=== PATIENT | female | born 1975 | race Caucasian/White ===

== ENCOUNTER → 2021-12-24 14:20 | Outpatient (CLI) | payer BC, SELFPAY ==
[2021-12-24 16:18] LABS: Alanine Aminotransferase 20 U/L (12-78); Albumin Level 4.1 g/dl (3.5-5.0); Alkaline Phosphatase 80 U/L (38-126); Aspartate Amino Transferase 31 U/L (14-36); Bilirubin,Direct 0.1 mg/dl (0.0-0.4); Chol/HDL Ratio 2.7 (1-3.5); Cholesterol 179 mg/dl (140-200); HDL Cholesterol 66 mg/dl (40-60); Total Protein,Serum 6.6 g/dl (6.3-8.2); Triglycerides 119 mg/dl (30-150); VLDL Cholesterol 24 mg/dL (0-40)
[2021-12-24 16:22] LABS: Bilirubin,Total 0.1 mg/dl (0.2-1.3)
[2021-12-26 13:50] LABS: Direct LDL Cholesterol 91 mg/dL (100-129)
== END ==
PROVIDERS: Visit Provider Nurse Practitioner
DX: R00.2 Palpitations (principal)
CPT/HCPCS: 36415; 80061; 80076

== ENCOUNTER 2023-12-01 11:26 | Outpatient (CLI) | payer BC, SELFPAY ==
[2023-12-01 11:55] LABS: Basophils # 0.1 K/mm3 (0-0.2); Basophils % 1.1 % (0.1-2.0); Eosinophils # 0.1 K/mm3 (0.0-0.4); Eosinophils % 1.1 % (0.1-12.0); Lymphocytes # 1.8 K/mm3 (0.7-4.5); Lymphocytes % 40.3 % (10-50); Mean Corpuscular HGB Conc 32.5 g/dL (31.8-35.4); Monocytes # 0.3 K/mm3 (0.1-1.0); Monocytes % 6.9 % (1.7-9.3); Neutrophils # 2.2 K/mm3 (1.8-7.8); Neutrophils % 50.5 % (37.0-80.0); Platelet Count 242 K/mm3 (142-424); Red Blood Count 4.49 M/mm3 (4.20-5.40); Red Cell Distribution Width 14.5 % (11.5-17.5); White Blood Count 4.4 K/mm3 (4.8-10.8)
[2023-12-01 12:24] LABS: Alanine Aminotransferase 21 U/L (12-78); Albumin Level 4.4 g/dl (3.5-5.0); Alkaline Phosphatase 54 U/L (38-126); Anion Gap 10.5 mEq/L (5-15); Aspartate Amino Transferase 32 U/L (14-36); Bilirubin,Indirect 0.9 mg/dL (0.0-0.9); Bilirubin,Total 0.9 mg/dl (0.2-1.3); Blood Urea Nitrogen 17 mg/dl (7-17); Calcium 9.6 mg/dl (8.4-10.2); Carbon Dioxide 26 mmol/L (22.0-30.0); Chloride 106 mmol/L (98-107); Chol/HDL Ratio 2.3 (1-3.5); Cholesterol 206 mg/dl (140-200); Estimated Glomerular Filt Rate 108 ml/min (>60); GFR (African American) 130 ML/MIN (>60); Glucose 93 mg/dl (74-100); HDL Cholesterol 88 mg/dl (40-60); Potassium 3.5 mmoL/L (3.5-5.1); Sodium 139 mmol/L (136-145); Total Protein,Serum 7.2 g/dl (6.3-8.2); Triglycerides 75 mg/dl (30-150); VLDL Cholesterol 15 mg/dL (0-40)
[2023-12-01 12:35] LABS: Direct LDL Cholesterol 86.43 mg/dL (100-129)
[2023-12-01 12:40] LABS: Free T4 (Free Thyroxine) 1.03 ng/dl (0.78-2.19)
[2023-12-01 12:55] LABS: Thyroid Stimulating Hormone 0.65 uIU/mL (0.465-4.68)
== END 2023-12-01 23:59 | disposition home or self-care (01) ==
LOC: LAB 11:27
PROVIDERS: Visit Provider Nurse Practitioner Family
DX: R00.2 Palpitations (principal); K21.9 Gastro-esophageal reflux disease without esophagitis
CPT/HCPCS: 36415; 80048; 80061; 80076; 84439; 84443; 85025